=== PATIENT | male | born 1955 | race Caucasian/White ===

== ENCOUNTER → 2020-09-14 | Day surgery (SDC) | payer OTHER ==
[~2020-09-14] MED LIST: AMIODARONE HCL 150MG 100 ML IV ONE; ASA 81 MG; ASPIRIN81 MG PO; CINNAMON; FENTANYL CITRATE/PF 100MCG/2 ML INJ ONE; FISH OIL 1,0001 EAC2 PO; GEMFIBROZIL PO; HONEY; METOPROLOL TARTRATE INJ 1 MG/ML VIAL IV ONE; METOPROLOL TARTRATE INJ 1 MG/ML VIAL ONE; MIDAZOLAM HCL 5 MG/ML VIAL ONE; NIACIN; OMEGA KRILL; OR PHACO EYE KIT ONE; PREOP PHACO EYE KIT ONE; SODIUM CHLORIDE 0.9% 1000ML 1,000 ML ONE; TRICOR
[2020-09-14 16:00] VITALS: BP 117/77
== END | disposition home or self-care (01) ==
LOC: OR 11:30
PROVIDERS: ATTEND Ophthalmology
DX: H25.12 Age-related nuclear cataract, left eye (principal); E78.1 Pure hyperglyceridemia; I48.91 Unspecified atrial fibrillation; N18.2 Chronic kidney disease, stage 2 (mild); I50.30 Unspecified diastolic (congestive) heart failure; F41.9 Anxiety disorder, unspecified; Z01.812 Encounter for preprocedural laboratory examination; Z20.828 Contact with and (suspected) exposure to other viral communicable diseases
CPT/HCPCS: 66984; 93005; J7030; U0002; V2632; J2250; J3010

== ENCOUNTER → 2020-09-28 | Day surgery (SDC) | payer OTHER ==
[~2020-09-28] MED LIST changes: -AMIODARONE HCL 150MG 100 ML IV ONE; -METOPROLOL TARTRATE INJ 1 MG/ML VIAL IV ONE; -METOPROLOL TARTRATE INJ 1 MG/ML VIAL ONE; +MIDAZOLAM HCL 2 MG/2 ML VIAL ONE; -MIDAZOLAM HCL 5 MG/ML VIAL ONE; -SODIUM CHLORIDE 0.9% 1000ML 1,000 ML ONE
[2020-09-28 14:45] VITALS: BP 121/84
== END | disposition home or self-care (01) ==
LOC: OR 10:22
PROVIDERS: ATTEND Ophthalmology
DX: H25.12 Age-related nuclear cataract, left eye (principal); Z01.812 Encounter for preprocedural laboratory examination; Z20.828 Contact with and (suspected) exposure to other viral communicable diseases; Z79.82 Long term (current) use of aspirin
CPT/HCPCS: 66984; J2250; J3010; U0002; V2632

== ENCOUNTER → 2021-01-05 | Outpatient (CLI) | payer OTHER ==
[~2021-01-05] MED LIST changes: -FENTANYL CITRATE/PF 100MCG/2 ML INJ ONE; -MIDAZOLAM HCL 2 MG/2 ML VIAL ONE; -OR PHACO EYE KIT ONE; -PREOP PHACO EYE KIT ONE
== END ==
LOC: SLEEP 19:00
PROVIDERS: ATTEND Internal Medicine
DX: G47.33 Obstructive sleep apnea (adult) (pediatric) (principal); Z01.812 Encounter for preprocedural laboratory examination; Z20.822 Contact with and (suspected) exposure to COVID-19
CPT/HCPCS: 95806; U0002